=== PATIENT | female | born 1960 | race African-American/Black ===

== ENCOUNTER 2018-04-03 11:20 | Observation (INO) | payer SELFPAY ==
[2018-04-03] VITALS (9 sets, daily range): BP systolic 139–185; BP diastolic 69–122; PULSE 61–96; RESP 16–24; TEMP 98.3–98.7; O2SAT 92–98
[~2018-04-03] VITALS: Ht 157.5 cm; Wt 100.0 kg
[~2018-04-03 11:20] MED LIST: AMLO5TAB22 PO; PRED5PAK PO; SYMB160A INH; VENTAER INH; Z.0.OXYGENDME NC
[2018-04-03] MEDS ORDERED: ASPIRIN 325 MG TAB PO ONE (11:45)
[2018-04-03] MEDS ORDERED: SODIUM CHLORIDE 0.9% FLUSH 10 ML FLUSH IVF PRN (11:45)
[2018-04-03] MEDS ORDERED: SYMB160A INH (11:53)
[2018-04-03] MEDS ORDERED: oxygen NAS.CANULA (11:53)
[2018-04-03] MEDS ORDERED: METOCLOPRAMIDE HCL 10 MG/2 ML VIAL IV PUSH ONE (12:00)
[2018-04-03] MEDS ORDERED: MORPHINE SULFATE 4 MG/ML INJ IV PUSH ONE (12:00)
[2018-04-03 12:23] LABS: AUTOMATED NEUTROPHIL # 2.9 TH/MM3 (1.8-7.7); BASOPHIL % 0.8 % (0.0-2.0); EOSINOPHIL # 0.2 TH/MM3 (0-0.4); EOSINOPHIL % 2.7 % (0.0-4.0); HEMATOCRIT 52.4 % (35.0-46.0); HEMOGLOBIN 17.4 GM/DL (11.6-15.3); MEAN CELL VOLUME 95.5 FL (80.0-100.0); MEAN CORPUSCULAR HEMOGLOBIN 31.8 PG (27.0-34.0); MEAN CORPUSCULAR HGB CONC 33.3 % (32.0-36.0); MEAN PLATELET VOLUME 9.5 FL (7.0-11.0); MONO % 8.8 % (0.0-8.0); MONOCYTE # 0.5 TH/MM3 (0-0.9); NEUT % 52.7 % (16.0-70.0); PLATELET COUNT 181 TH/MM3 (150-450); RED BLOOD COUNT 5.48 MIL/MM3 (4.00-5.30); RED CELL DISTRIBUTION WIDTH 14.8 % (11.6-17.2); WHITE BLOOD COUNT 5.6 TH/MM3 (4.0-11.0)
[2018-04-03] MEDS: RESP: ALBUTEROL 2.5 MG/IPRATROPIUM 0.5 MG NEB (SCH) INH ×2 (12:31→12:34)
[2018-04-03 12:36] LABS: INTERNATIONAL NORMALIZED RATIO 1.1 RATIO; PROTHROMBIN TIME - PATIENT 10.7 SEC (9.8-11.6)
--- NOTE | 2018-04-03 12:45 | RADRPT ---
EXAM DATE: 04/03/2018 12:26 PM EDT AGE/SEX: 57 years / Female INDICATIONS: Left side chest pain. CLINICAL DATA: This is the patient's initial encounter. Patient reports that signs and symptoms have been present for 4 - 6 days and indicates a pain score of 10/10. MEDICAL/SURGICAL HISTORY: Carcinoma, lung. None. COMPARISON: [facility] – [place], CHEST SINGLE AP, 11/22/2015. . FINDINGS: Subtle rounded parenchymal opacity in the left lower lung zone which is likely due to confluence of s hadows. Cardiomediastinal contours are within normal limits. Bony thorax is intact. CONCLUSION: 1. Rounded parenchymal opacity in the left lower lung zone, likely due to confluence of shadows. Rec ommend formal PA and lateral views of the chest for better evaluation. Electronically signed by: Artis Montgomery MD 04/03/2018 12:44 PM EDT
[2018-04-03 12:51] LABS: ALBUMIN 3.6 GM/DL (3.4-5.0); ALKALINE PHOSPHATASE 75 U/L (45-117); ALT (GPT) 74 U/L (10-53); BICARBONATE 30.7 MEQ/L (21.0-32.0); BLOOD UREA NITROGEN 16 MG/DL (7-18); CALCIUM 8.6 MG/DL (8.5-10.1); CHLORIDE 104 MEQ/L (98-107); CREATININE 1.04 MG/DL (0.50-1.00); GLOMERULAR FILTRATION RATE 67 ML/MIN (>89); GLUCOSE,RANDOM 107 MG/DL (74-106); SODIUM (NA) 140 MEQ/L (136-145); TOTAL BILIRUBIN ADULT 0.4 MG/DL (0.2-1.0); TOTAL PROTEIN 7.5 GM/DL (6.4-8.2); TROPONIN I LESS THAN 0.02 NG/ML (0.02-0.05)
[2018-04-03 12:53] LABS: AST (GOT) 47 U/L (15-37); MAGNESIUM 1.9 MG/DL (1.5-2.5)
--- NOTE | 2018-04-03 13:25 | RADRPT ---
EXAM DATE: 04/03/2018 1:21 PM EDT AGE/SEX: 57 years / Female INDICATIONS: Chest pain. CLINICAL DATA: This is the patient's initial encounter. Patient reports that signs and symptoms have been present for 1 week and indicates a pain score of 10/10. MEDICAL/SURGICAL HISTORY: Chronic obstructive pulmonary disease. None. [place] [facility] [place] . FINDINGS: PA and lateral views of the chest demonstrate the lungs to be symmetrically aerated without evidence of mass, infiltrate or effusion. The cardiomediastinal contours are unremarkable. Osseous structures are intact. CONCLUSION: No acute cardiopulmonary findings are identified. Exam is similar to previous dated 01/05/2016. Electronically signed by: Shai Davalos MD 04/03/2018 1:24 PM EDT
--- NOTE | 2018-04-03 13:38 | PD ---
Physical Exam Narrative I, Dr. Miramontes, have reviewed the advance practice practitioner's documentation and am in agreement, met with the patient face to face, made the diagnosis, and the medical decision making was done by me. *My assessment and Findings: Please see mid-level provider note for full history and physical and disposition. Patient presents to the emergency department complaining of one-week history of left-sided chest pain that got worse today. Pain is described as being constant with left arm numbness. She reports cough but denies fever, chills, nausea, vomiting. Recently traveled to and from [place], [place]. Patient placed on a cardiac cath rn, IV access obtained, and chest x-ray/EKG/labs ordered. EKG: Sinus rhythm, T-wave inversion in lead I , II, aVL, V5 and V6, rate 80. Patient received 325 mg p.o. aspirin in ER. Will be admitted to chest pain obs. Data Data Last Documented VS Vital Signs Date Time Temp Pulse Resp B/P (MAP) Pulse Ox O2 Delivery O2 Flow Rate FiO2 04/03/18 12:52 18 04/03/18 12:20 80 168/90 (116) 98 Nasal Cannula 2.00 04/03/18 11:30 98.3 Orders Orders Electrocardiogram (04/03/18 11:37) Ckmb (Isoenzyme) Profile (04/03/18 11:37) Complete Blood Count With Diff (04/03/18 11:37) Comprehensive Metabolic Panel (04/03/18 11:37) Magnesium (Mg) (04/03/18 11:37) Prothrombin Time / Inr (Pt) (04/03/18 11:37) Act Partial Throm Time (Ptt) (04/03/18 11:37) Troponin I (04/03/18 11:37) Lipase (04/03/18 11:37) Chest, Single Ap (04/03/18 11:37) Ecg Monitoring (04/03/18 11:37) Bilateral Bp Monitoring (04/03/18 11:37) Iv Access Insert/Monitor (04/03/18 11:37) Oximetry (04/03/18 11:37) Oxygen Administration (04/03/18 11:37) Aspirin (Aspirin) (04/03/18 11:45) Sodium Chloride 0.9% Flush (Ns Flush) (04/03/18 11:45) D-Dimer (04/03/18 11:47) Albuterol-Ipratropium Neb (Duoneb Neb) (04/03/18 12:00) Morphine Inj (Morphine Inj) (04/03/18 12:00) Metoclopramide Inj (Reglan Inj) (04/03/18 12:00) Chest, Pa & Lat (04/03/18 ) CKMB (04/03/18 12:00) CKMB% (04/03/18 12:00) Admit Order (Ed Use Only) (04/03/18 13:35) Labs Laboratory Tests Test 04/03/18 12:00 White Blood Count 5.6 TH/MM3 Red Blood Count 5.48 MIL/MM3 Hemoglobin 17.4 GM/DL Hematocrit 52.4 % Mean Corpuscular Volume 95.5 FL Mean Corpuscular Hemoglobin 31.8 PG Mean Corpuscular Hemoglobin Concent 33.3 % Red Cell Distribution Width 14.8 % Platelet Count 181 TH/MM3 Mean Platelet Volume 9.5 FL Neutrophils (%) (Auto) 52.7 % Lymphocytes (%) (Auto) 35.0 % Monocytes (%) (Auto) 8.8 % Eosinophils (%) (Auto) 2.7 % Basophils (%) (Auto) 0.8 % Neutrophils # (Auto) 2.9 TH/MM3 Lymphocytes # (Auto) 2.0 TH/MM3 Monocytes # (Auto) 0.5 TH/MM3 Eosinophils # (Auto) 0.2 TH/MM3 Basophils # (Auto) 0.0 TH/MM3 CBC Comment DIFF FINAL Differential Comment Prothrombin Time 10.7 SEC Prothromb Time International Ratio 1.1 RATIO Activated Partial Thromboplast Time 26.0 SEC D-Dimer Quantitative (PE/DVT) 0.21 MG/L FEU Blood Urea Nitrogen 16 MG/DL Creatinine 1.04 MG/DL Random Glucose 107 MG/DL Total Protein 7.5 GM/DL Albumin 3.6 GM/DL Calcium Level 8.6 MG/DL Magnesium Level 1.9 MG/DL Alkaline Phosphatase 75 U/L Aspartate Amino Transf (AST/SGOT) 47 U/L Alanine Aminotransferase (ALT/SGPT) 74 U/L Total Bilirubin 0.4 MG/DL Sodium Level 140 MEQ/L Potassium Level 4.8 MEQ/L Chloride Level 104 MEQ/L Carbon Dioxide Level 30.7 MEQ/L Anion Gap 5 MEQ/L Estimat Glomerular Filtration Rate 67 ML/MIN Total Creatine Kinase 158 U/L Creatine Kinase MB 2.6 NG/ML Troponin I LESS THAN 0.02 NG/ML Lipase 111 U/L [facility] Supervised Visit with MINE: Yes Interpretation(s) Labs: Normal white count, d-dimer normal, cardiac enzymes normal, creatinine/ glucose/AST/ALT increased Last Impressions Chest X-Ray 04/03/18 1137 Signed Impressions: CONCLUSION: 1. Rounded parenchymal opacity in the left lower lung zone, likely due to conf luence of shadows. Recommend formal PA and lateral views of the chest for kristine r evaluation. Chest X-Ray 04/03/18 0000 Signed Impressions: CONCLUSION: No acute cardiopulmonary findings are identified. Exam is similar to previous dated 01/05/2016. Diagnosis Primary Impression: Chest pain Qualified Codes: R07.9 - Chest pain, unspecified Admitting Information Admitting Physician Requests: Observation Condition: Stable Lisa Miramontes MD Apr 03, 2018 13:38
--- NOTE | 2018-04-03 13:42 | PD ---
HPI Chief Complaint: Chest Pain Time Seen by Provider: 11:37 Travel History International Travel<30 days: No Contact w/Intl Traveler<30days: No Traveled to known affect area: No History of Present Illness HPI 57-year-old female that presents to the ED for evaluation of chest pain that she has had for the past 3 days. Per patient the pain goes to her left arm. This is what concerned her. Per patient comes and goes with more significant today. Per patient the pain is 7 out of 10. She denies any recent stress test. She does have a history of COPD on oxygen as well as per patient she has a history of high blood pressure and diabetes. She recently came here from [place]. She denies any trauma or injury. She states that nothing seems to make the pain better or worse. She has not taken anything for this. She denies any abdominal pain. Nausea or vomiting. No urinary or bowel movement issues PFSH Past Medical History Asthma: Yes Blood Disorders: No Anxiety: No Heart Rhythm Problems: No Cancer: Yes (breast;LUNG) Cardiovascular Problems: Yes High Cholesterol: No Chemotherapy: No Chest Pain: Yes (DURING CAT SCAN/REACTION TO DYE 11/19/15) Congestive Heart Failure: Yes COPD: Yes (3 L PER NC) Cerebrovascular Accident: Yes Coronary Artery Disease: No Diabetes: Yes Patient Takes Glucophage: No Endocrine: No Genitourinary: Yes Hypertension: Yes Immune Disorder: No Implanted Vascular Access Dvce: Yes Musculoskeletal: Yes (L ANKLE FX NOT REPAIRED ) Neurologic: Yes Psychiatric: No Reproductive: No Respiratory: Yes Radiation Therapy: No Seizures: No Sleep Apnea: No Thyroid Disease: No ?: Not Menopausal: Yes Past Surgical History Abdominal Surgery: Yes (CYST REMOVAL ) Body Medical Devices: LEFT BREAST MARKER FOR FUTURE BIOPSY Gynecologic Surgery: Yes (LEFT BREAST BIOPSY) Other Surgery: Yes (STOMACH TUMOR REMOVED DURING TEENS) Social History Alcohol Use: Yes (2 BEERS week) Tobacco Use: Yes (half a pack a day ) Substance Use: No Allergies-Medications (Allergen,Severity, Reaction): Coded Allergies: diatrizoate meglumine (Unverified Allergy, Intermediate, Wheezing, 04/03/18 ) gadobenic acid (Unverified Allergy, Intermediate, Wheezing, 04/03/18) gadodiamide (Unverified Allergy, Intermediate, Wheezing, 04/03/18) gadoteridol (Unverified Allergy, Intermediate, Wheezing, 04/03/18) iodixanol (Unverified Allergy, Intermediate, Wheezing, 04/03/18) iohexol (Unverified Allergy, Intermediate, Wheezing, 04/03/18) Reported Meds & Prescriptions Reported Meds & Active Scripts Active Reported [oxygen ] 3 Liter VALENTINE.CANULA CONTINUOUS Symbicort Inh (Budesonide/Formoterol Fumarate) 160-4.5 Mcg/Act Aero 2 Puff INH Q12HR Review of Systems Except as stated in HPI: all other systems reviewed are Neg Physical Exam Narrative GENERAL: SKIN: Warm and dry. HEAD: Atraumatic. Normocephalic. EYES: Pupils equal and round. No scleral icterus. No injection or drainage. ENT: No nasal bleeding or discharge. Mucous membranes pink and moist. Tongue is midline. No uvula deviation. NECK: Trachea midline. No JVD. CARDIOVASCULAR: Regular rate and rhythm. No murmurs, S3, S4. RESPIRATORY: No accessory muscle use. Mild wheezing heard in all lung hogue. Breath sounds equal bilaterally. GASTROINTESTINAL: Abdomen soft, non-tender, nondistended. Hepatic and splenic margins not palpable. MUSCULOSKELETAL: Extremities without clubbing, cyanosis, or edema. No obvious deformities. Full range of motion of the upper and lower extremities bilaterally. 2+ pulses bilaterally. NEUROLOGICAL: Awake and alert. No obvious cranial nerve deficits. Motor grossly within normal limits. Five out of 5 muscle strength in the arms and legs. Normal speech. PSYCHIATRIC: Appropriate mood and affect; insight and judgment normal. Data Data Last Documented VS Vital Signs Date Time Temp Pulse Resp B/P (MAP) Pulse Ox O2 Delivery O2 Flow Rate FiO2 04/03/18 12:52 18 04/03/18 12:20 80 168/90 (116) 98 Nasal Cannula 2.00 04/03/18 11:30 98.3 Orders Orders Electrocardiogram (04/03/18 11:37) Ckmb (Isoenzyme) Profile (04/03/18 11:37) Complete Blood Count With Diff (04/03/18 11:37) Comprehensive Metabolic Panel (04/03/18 11:37) Magnesium (Mg) (04/03/18 11:37) Prothrombin Time / Inr (Pt) (04/03/18 11:37) Act Partial Throm Time (Ptt) (04/03/18 11:37) Troponin I (04/03/18 11:37) Lipase (04/03/18 11:37) Chest, Single Ap (04/03/18 11:37) Ecg Monitoring (04/03/18 11:37) Bilateral Bp Monitoring (04/03/18 11:37) Iv Access Insert/Monitor (04/03/18 11:37) Oximetry (04/03/18 11:37) Oxygen Administration (04/03/18 11:37) Aspirin (Aspirin) (04/03/18 11:45) Sodium Chloride 0.9% Flush (Ns Flush) (04/03/18 11:45) D-Dimer (04/03/18 11:47) Albuterol-Ipratropium Neb (Duoneb Neb) (04/03/18 12:00) Morphine Inj (Morphine Inj) (04/03/18 12:00) Metoclopramide Inj (Reglan Inj) (04/03/18 12:00) Chest, Pa & Lat (04/03/18 ) CKMB (04/03/18 12:00) CKMB% (04/03/18 12:00) Admit Order (Ed Use Only) (04/03/18 13:35) Labs Laboratory Tests Test 04/03/18 12:00 White Blood Count 5.6 TH/MM3 Red Blood Count 5.48 MIL/MM3 Hemoglobin 17.4 GM/DL Hematocrit 52.4 % Mean Corpuscular Volume 95.5 FL Mean Corpuscular Hemoglobin 31.8 PG Mean Corpuscular Hemoglobin Concent 33.3 % Red Cell Distribution Width 14.8 % Platelet Count 181 TH/MM3 Mean Platelet Volume 9.5 FL Neutrophils (%) (Auto) 52.7 % Lymphocytes (%) (Auto) 35.0 % Monocytes (%) (Auto) 8.8 % Eosinophils (%) (Auto) 2.7 % Basophils (%) (Auto) 0.8 % Neutrophils # (Auto) 2.9 TH/MM3 Lymphocytes # (Auto) 2.0 TH/MM3 Monocytes # (Auto) 0.5 TH/MM3 Eosinophils # (Auto) 0.2 TH/MM3 Basophils # (Auto) 0.0 TH/MM3 CBC Comment DIFF FINAL Differential Comment Prothrombin Time 10.7 SEC Prothromb Time International Ratio 1.1 RATIO Activated Partial Thromboplast Time 26.0 SEC D-Dimer Quantitative (PE/DVT) 0.21 MG/L FEU Blood Urea Nitrogen 16 MG/DL Creatinine 1.04 MG/DL Random Glucose 107 MG/DL Total Protein 7.5 GM/DL Albumin 3.6 GM/DL Calcium Level 8.6 MG/DL Magnesium Level 1.9 MG/DL Alkaline Phosphatase 75 U/L Aspartate Amino Transf (AST/SGOT) 47 U/L Alanine Aminotransferase (ALT/SGPT) 74 U/L Total Bilirubin 0.4 MG/DL Sodium Level 140 MEQ/L Potassium Level 4.8 MEQ/L Chloride Level 104 MEQ/L Carbon Dioxide Level 30.7 MEQ/L Anion Gap 5 MEQ/L Estimat Glomerular Filtration Rate 67 ML/MIN Total Creatine Kinase 158 U/L Creatine Kinase MB 2.6 NG/ML Troponin I LESS THAN 0.02 NG/ML Lipase 111 U/L MDM Medical Decision Making Medical Screen Exam Complete: Yes Emergency Medical Condition: Yes Medical Record Reviewed: Yes Interpretation(s) CBC & BMP Diagram 04/03/18 12:00 Total Protein 7.5, Albumin 3.6, Calcium Level 8.6, Magnesium Level 1.9, Alkaline Phosphatase 75, Aspartate Amino Transf (AST/SGOT) 47 H, Alanine Aminotransferase (ALT/SGPT) 74 H, Total Bilirubin 0.4 troponin and CKMB negative Last Impressions Chest X-Ray 04/03/18 1137 Signed Impressions: CONCLUSION: 1. Rounded parenchymal opacity in the left lower lung zone, likely due to conf luence of shadows. Recommend formal PA and lateral views of the chest for kristine r evaluation. Chest X-Ray 04/03/18 0000 Signed Impressions: CONCLUSION: No acute cardiopulmonary findings are identified. Exam is similar to previous dated 01/05/2016. EKG shows sinus rhythm with no sign of acute ischemia or arrhythmia rhythm and attending. lipase negative d-dimmer negative Differential Diagnosis Chest pain versus a typical chest pain versus ACS versus lung mass versus COPD exacerbation versus COPD Narrative Course 57-year-old male the presents to the ED for evaluation of chest pain. Patient was properly examined and was found to have signs and symptoms of unclear etiology but deafly concern for ACS. She does have risk factors for this. She does appear to have some wheezing on exam. Per patient she is never had this pain before. She cannot really tell me she never had a stress test recently. She does have risk factors per patient she has a history of diabetes and high blood pressure. Labs and imaging were ordered. Labs and imaging were essentially unremarkable here. Chest x-ray showed abnormality but the recommended multiple views of the x-ray which showed no sign of disease. My attending Dr Miramontes evaluated the patient herself and patient agreed to admission to the chest pain center for chest pain rule out. Patient was admitted to the chest pain center by me. Diagnosis Primary Impression: Chest pain in adult Admitting Information Admitting Physician Requests: Observation Natalio Jones Apr 03, 2018 13:42
[2018-04-03] MEDS ORDERED: SODIUM CHLORIDE 0.9% FLUSH 10 ML FLUSH IV FLUSH PRN (14:00)
[2018-04-03] MEDS ORDERED: NITROGLYCERIN 0.4 MG SL 25 TABS/BTL SL PRN (14:00)
[2018-04-03] MEDS: ACETAMINOPHEN 500 MG CPLT PO PRN (15:42)
--- NOTE | 2018-04-03 16:09 | HHI.HP ---
HPI Primary Care Physician No Primary Care Physician Chief Complaint Chest pain History of Present Illness 57-year-old female history of COPD, O2 dependent, and breast cancer presents emergency room for further evaluation chest pain. Onset 2 weeks. Location left breast and left inframammary area. Radiation to left arm causing her left arm to go numb. Moderate in severity. Duration constant. Endorses history of breast cancer with possible malignancy to lungs. Reports having a biopsy of lung and was told everything was "okay." Reports she hasn't followed up with an oncologist as she was incarcerated. While incarcerated reports having a left breast ultrasound. Reports the multiple masses in left breast had grown in size. Review of Systems General: No fatigue,weakness, fever, chills, or recent illness HEENT: No LANGLEY, no vision changes, no nasal congestion or drainage, no dysphasia CV: As stated above, describing left breast and chest wall pain. RESP: History of COPD and O2 dependent. No current dyspnea. No recent upper respiratory infection or wheeze. GI: No nausea, vomiting, or bowel changes. : No dysuria, urgency, frequency MS: No discomfort or change in ROM NEURO: No change in memory, dizziness, difficulty with balance, LOC, or motor/ sensory deficits PSYCH: No anxiety, depression, or suicidal ideation SKIN: No rashes, no concerning lesions Past Family Social History Allergies: Coded Allergies: diatrizoate meglumine (Unverified Allergy, Intermediate, Wheezing, 04/03/18 ) gadobenic acid (Unverified Allergy, Intermediate, Wheezing, 04/03/18) gadodiamide (Unverified Allergy, Intermediate, Wheezing, 04/03/18) gadoteridol (Unverified Allergy, Intermediate, Wheezing, 04/03/18) iodixanol (Unverified Allergy, Intermediate, Wheezing, 04/03/18) iohexol (Unverified Allergy, Intermediate, Wheezing, 04/03/18) Past Medical History Asthma, COPD, hypertension, diabetes, breast cancer Past Surgical History Left breast biopsy Reported Medications Reported Meds & Active Scripts Active Reported [oxygen ] 3 Liter VALENTINE.CANULA CONTINUOUS Symbicort Inh (Budesonide/Formoterol Fumarate) 160-4.5 Mcg/Act Aero 2 Puff INH Q12HR Active Ordered Medications Current Medications Medications (Trade) Dose Ordered Sig/Andra Route Start Time Stop Time Status Last Admin (NS Flush) 2 ml UNSCH PRN IVF 04/03/18 11:45 (NS Flush) 2 ml UNSCH PRN IV FLUSH 04/03/18 14:00 (Tylenol) 500 mg Q4H PRN PO 04/03/18 14:00 04/03/18 15:42 (Nitrostat Sl) 0.4 mg Q5M PRN SL 04/03/18 14:00 (Aspirin) 325 mg DAILY PO 04/04/18 09:00 Social History No known coronary artery disease or hyperlipidemia. Known hypertension and diabetes. Current half a pack a day smoker. Denies any alcohol or illegal drug use. Past cardiac testing None Physical Exam Vital Signs Vital Signs Date Time Temp Pulse Resp B/P (MAP) Pulse Ox O2 Delivery O2 Flow Rate FiO2 04/03/18 15:42 Nasal Cannula 3.00 04/03/18 13:50 78 149/69 (95) 04/03/18 12:52 18 04/03/18 12:20 80 18 168/90 (116) 98 Nasal Cannula 2.00 04/03/18 11:49 (143) Nasal Cannula 3.00 04/03/18 11:48 72 185/122 (143) 172/101 (124) 04/03/18 11:46 78 28 96 Nasal Cannula 3.00 04/03/18 11:45 95 Nasal Cannula 3.00 04/03/18 11:30 98.3 88 24 178/105 (129) 94 Laboratory Laboratory Tests Test 04/03/18 12:00 04/03/18 15:30 White Blood Count 5.6 Red Blood Count 5.48 Hemoglobin 17.4 Hematocrit 52.4 Mean Corpuscular Volume 95.5 Mean Corpuscular Hemoglobin 31.8 Mean Corpuscular Hemoglobin Concent 33.3 Red Cell Distribution Width 14.8 Platelet Count 181 Mean Platelet Volume 9.5 Neutrophils (%) (Auto) 52.7 Lymphocytes (%) (Auto) 35.0 Monocytes (%) (Auto) 8.8 Eosinophils (%) (Auto) 2.7 Basophils (%) (Auto) 0.8 Neutrophils # (Auto) 2.9 Lymphocytes # (Auto) 2.0 Monocytes # (Auto) 0.5 Eosinophils # (Auto) 0.2 Basophils # (Auto) 0.0 CBC Comment DIFF FINAL Differential Comment Prothrombin Time 10.7 Prothromb Time International Ratio 1.1 Activated Partial Thromboplast Time 26.0 D-Dimer Quantitative (PE/DVT) 0.21 Blood Urea Nitrogen 16 Creatinine 1.04 Random Glucose 107 Total Protein 7.5 Albumin 3.6 Calcium Level 8.6 Magnesium Level 1.9 Alkaline Phosphatase 75 Aspartate Amino Transf (AST/SGOT) 47 Alanine Aminotransferase (ALT/SGPT) 74 Total Bilirubin 0.4 Sodium Level 140 Potassium Level 4.8 Chloride Level 104 Carbon Dioxide Level 30.7 Anion Gap 5 Estimat Glomerular Filtration Rate 67 Total Creatine Kinase 158 Creatine Kinase MB 2.6 Troponin I LESS THAN 0.02 Lipase 111 Result Diagram: 04/03/18 1200 04/03/18 1200 Imaging Last 48 hours Impressions Chest X-Ray 04/03/18 1137 Signed Impressions: CONCLUSION: 1. Rounded parenchymal opacity in the left lower lung zone, likely due to conf luence of shadows. Recommend formal PA and lateral views of the chest for kristine r evaluation. Chest X-Ray 04/03/18 0000 Signed Impressions: CONCLUSION: No acute cardiopulmonary findings are identified. Exam is similar to previous dated 01/05/2016. Course EKG NSR, nonspecific st changes, t waves inversion Caprini VTE Risk Assessment Caprini VTE Risk Assessment: No/Low Risk (score <= 1) Caprini Risk Assessment Model Point Value = 1 Point Value = 2 Point Value = 3 Point Value = 5 Age 41-60 Minor surgery BMI > 25 kg/m2 Swollen legs Varicose veins or History of unexplained or recurrent spontaneous Oral contraceptives or hormone replacement Sepsis (< 1 month) Serious lung disease, including pneumonia (< 1 month) Abnormal pulmonary function Acute myocardial infarction Congestive heart failure (< 1 month) History of inflammatory bowel disease Medical patient at bed rest Age 61-74 Arthroscopic surgery Major open surgery (> 45 min) Laparoscopic surgery (> 45 min) Malignancy Confined to bed (> 72 hours) Immobilizing plaster cast Central venous access Age >= 75 History of VTE Family history of VTE Factor V Leiden Prothrombin [id number] Lupus anticoagulant Anticardiolipin antibodies Elevated serum homocysteine Heparin-induced thrombocytopenia Other congenital or acquired thrombophilia Stroke (< 1 month) Elective arthroplasty Hip, pelvis, or leg fracture Acute spinal cord injury (< 1 month) Prophylaxis Regimen Total Risk Factor Score Risk Level Prophylaxis Regimen 0-1 Low Early ambulation 2 Moderate Order ONE of the following: *Sequential Compression Device (SCD) *Heparin 5000 units SQ BID 3-4 Higher Order ONE of the following medications: *Heparin 5000 units SQ TID *Enoxaparin/Lovenox 40 mg SQ daily (WT < 150 kg, CrCl > 30 mL/min) *Enoxaparin/Lovenox 30 mg SQ daily (WT < 150 kg, CrCl > 10-29 mL/min) *Enoxaparin/Lovenox 30 mg SQ BID (WT < 150 kg, CrCl > 30 mL/min) AND/OR *Sequential Compression Device (SCD) 5 or more Highest Order ONE of the following medications: *Heparin 5000 units SQ TID (Preferred with Epidurals) *Enoxaparin/Lovenox 40 mg SQ daily (WT < 150 kg, CrCl > 30 mL/min) *Enoxaparin/Lovenox 30 mg SQ daily (WT < 150 kg, CrCl > 10-29 mL/min) *Enoxaparin/Lovenox 30 mg SQ BID (WT < 150 kg, CrCl > 30 mL/min) AND *Sequential Compression Device (SCD) Assessment and Plan Assessment and Plan Admitted to chest pain center. Continue ACS protocol initiated in the ER, although discomfort has been constant 2 weeks and localized in her left breast and chest wall. Seen and evaluated by Dr. Shawn Burton. Unsure if she has history of breast cancer vs breast mass and or lung mass. Obtain CT of her chest. Further disposition to follow. Continue O2/3 L. Respiratory treatments every 2 hours as needed. Will reorder home medications once updated in EMR. Neela Zhong Apr 03, 2018 16:09
[2018-04-03 16:23] LABS: TROPONIN I LESS THAN 0.02 NG/ML (0.02-0.05)
[2018-04-03] MEDS: amLODIPine BESYLATE 5 MG TAB PO SCH (18:03)
--- NOTE | 2018-04-03 18:44 | RADRPT ---
EXAM DATE: 04/03/2018 5:29 PM EDT AGE/SEX: 57 years / Female INDICATIONS: Chest pain today. CLINICAL DATA: This is the patient's initial encounter. Patient reports that signs and symptoms have been present for 1 day and indicates a pain score of 6/10. MEDICAL/SURGICAL HISTORY: Stroke. Carcinoma, breast. Carcinoma, lung. None. RADIATION DOSE: 13.36 CTDI (mGy) COMPARISON: [facility] – [place], 11/19/2015. . TECHNIQUE: Multiple contiguous axial images were obtained through the chest without contrast. Image s were obtained in suspended respiration using multiple row detector helical technique. Using automa daniel exposure control and adjustment of the mA and/or kV according to patient size, radiation dose was kept as low as reasonably achievable to obtain optimal diagnostic quality images. DICOM format imag e data is available electronically for review and comparison. FINDINGS: There is mild to moderate emphysema. Scattered parenchymal scarring in the lungs. There is no pleural or pericardial effusion. Moderate coronary calcifications. Previously identified spiculated nodule i n the right upper lobe is not identified on the current exam. No adenopathy. No acute findings in the upper abdomen. CONCLUSION: 1. Moderate to severe emphysema with scattered parenchymal scarring in the lungs. No effusions or ad enopathy. Electronically signed by: Parth Barahona MD 04/03/2018 6:43 PM EDT
[2018-04-03 19:25] LABS: TROPONIN I LESS THAN 0.02 NG/ML (0.02-0.05)
[2018-04-04] VITALS: PULSE 78
[2018-04-04 00:09] VITALS: BP 132/86; PULSE 83; RESP 17; TEMP 97.9; O2SAT 97
[2018-04-04 04:26] VITALS: BP 163/105; PULSE 80; RESP 16; TEMP 97.6; O2SAT 91
[2018-04-04 07:58] VITALS: BP 125/89; PULSE 70; RESP 16; TEMP 98.2; O2SAT 93
[2018-04-04] MEDS ORDERED: RESP: ALBUTEROL 2.5 MG/3 ML NEB (PRN) NEB (08:45)
[2018-04-04] MEDS ORDERED: ASPIRIN 325 MG TAB PO SCH (09:00)
--- NOTE | 2018-04-04 09:14 | EKG ---
Date Performed: 04/03/2018 Time Performed: 18:23:22 PTAGE: 57 years EKG: Sinus rhythm POSSIBLE LEFT ATRIAL ENLARGEMENT NONSPECIFIC T-WAVE ABNORMALITY BORDERLINE ECG Since PREVIOUS TRACING , no significant change noted PREVIOUS TRACIN04/03/2018 15.13 DOCTOR: Blanche Giles Interpretating Date/Time 04/04/2018 09:12:36
--- NOTE | 2018-04-04 09:15 | EKG ---
Date Performed: 04/03/2018 Time Performed: 15:13:28 PTAGE: 57 years EKG: ECTOPIC ATRIAL RHYTHM LOW QRS VOLTAGE IN EXTREMITY LEADS SEPTAL MYOCARDIAL INFARCTION POSSI BLE LATERAL MYOCARDIAL INFARCTION ABNORMAL ECG Since PREVIOUS TRACING , no significant change noted PREVIOUS TRACIN04/03/2018 11.41 DOCTOR: Blanche Giles Interpretating Date/Time 04/04/2018 09:13:55
--- NOTE | 2018-04-04 09:16 | EKG ---
Date Performed: 04/03/2018 Time Performed: 11:41:10 PTAGE: 57 years EKG: Sinus rhythm POSSIBLE LEFT ATRIAL ENLARGEMENT NONSPECIFIC ST & T-WAVE ABNORMALITY ABNORMAL ECG Since PREVIOUS TRACING , no significant change noted PREVIOUS TRACIN01/05/2016 10.42 DOCTOR: Blanche Giles Interpretating Date/Time 04/04/2018 09:15:17
[2018-04-04] MEDS ORDERED: REGADENOSON INJ 0.4 MG/5 ML SYR ONE (10:08)
--- NOTE | 2018-04-04 11:30 | RADRPT ---
EXAM DATE: 04/04/2018 11:21 AM EDT AGE/SEX: 57 years / Female INDICATIONS:Angina. . Chest pain x 2 weeks. CLINICAL DATA: This is the patient's initial encounter. Patient reports that signs and symptoms have been present for 1 day and indicates a pain score of 0/10. MEDICAL/SURGICAL HISTORY: Carcinoma, breast. Chronic obstructive pulmonary disease. Hypertens ion. Smoker. . Left breast biopsy. COMPARISON: No prior exams available for comparison. DOSE: 35 mCi Tc 99m Myoview at rest 11 mCi [id number] at stress 0.4 mg Lexiscan STRESS SYMPTOMS: Nausea and stomach burning. EJECTION FRACTION: 53 % TECHNIQUE: The patient underwent pharmacologic stress with infusion of prescribed dose. Continuous ECG tracing was monitored during stress. Gated SPECT imaging was performed after stress and conventi onal SPECT imaging was performed at rest. The examination was performed on a SPECT/CT scanner, both attenuation and non-corrected datasets were reviewed. FINDINGS: Distribution: The maximum perfused segment at stress is in the lateral wall. Perfusion Study: The pattern of perfusion at stress is within normal limits. Gated Study: There are intact wall motion and wall thickening without hypokinetic or dyskinetic segm ents. The ejection fraction is calculated at 53%. RISK CATEGORY: Low (<1% Annual Motality Rate) CONCLUSION: 1. Unremarkable myocardial perfusion study. Electronically signed by: Denys Benton MD 04/04/2018 11:28 AM EDT
--- NOTE | 2018-04-04 11:49 | RADRPT ---
EXAM DATE: 04/04/2018 11:25 AM EDT AGE/SEX: 57 years / Female INDICATIONS: Chest pain, short of breath. CLINICAL DATA: This is the patient's subsequent encounter. Patient reports that signs and symptoms h ave been present for 3 days and indicates a pain score of 7/10. MEDICAL/SURGICAL HISTORY: Hypertension. Congestive heart failure. Chronic obstructive pulmona ry disease. Asthma None. [place] [facility] [place]. . FINDINGS: PA and lateral views of the chest demonstrate the lungs to be symmetrically aerated without evidence of mass, infiltrate or effusion. The cardiomediastinal contours are unremarkable. Osseous structures are intact. CONCLUSION: No acute pulmonary infiltrates. No new or significant changes compared to the prior study. Electronically signed by: Denys Benton MD 04/04/2018 11:48 AM EDT
--- NOTE | 2018-04-04 11:51 | HHI.DCPOC ---
Discharge Care Plan Diagnosis: (1) Chest pain in adult (2) Tobacco use Goals to Promote Your Health * To prevent worsening of your condition and complications * To maintain your health at the optimal level Directions to Meet Your Goals Take your medications as prescribed Follow your dietary instruction Follow activity as directed Keep your appointments as scheduled Take your immunizations and boosters as scheduled If your symptoms worsen call your PCP, if no PCP go to Urgent Care Center or Emergency Room Smoking is Dangerous to Your Health. Avoid second hand smoke Call the 24-hour hour crisis hotline for domestic abuse at Neela Zhong Apr 04, 2018 11:51
--- NOTE | 2018-04-04 11:58 | HHI.DS ---
Discharge Summary Admission Date Apr 03, 2018 at 13:36 Discharge Date: Apr 04, 2018 Admitting Diagnosis acute chest pain, r/o ACS (1) Chest pain in adult Diagnosis: Principal ICD Codes: R07.9 - Chest pain, unspecified Status: Chronic (2) Tobacco use Diagnosis: Secondary ICD Codes: Z72.0 - Tobacco use Status: Chronic Brief History 57-year-old female who is O2 dependent, history of COPD, continues to smoke presented emergency room for further evaluation chest pain. Onset at least 2 weeks. Duration constant. No chest pain center. Ruled out with 3 sets of EKGs cardiac enzymes, monitor on telemetry overnight. Seen evaluated by integrated program teacher. Treated with Lexiscan in a.m. She reported left breast cancer ( dx 2003) with possible malignancy to left upper lobe (2013). Following with an oncologist in 2015, reports she never received results of testing because she was incarcerated. Since released from penitentiary has not followed up with a primary care provider. She is a poor historian, denied ever having treatment such as chemotherapy or radiation. CT of her chest completed showing mild to moderate emphysema and right lower lobe mass not seen on current exam. Discharged home with copy of chemical stress test and CT scan of her chest. Stressed importance of reestablishing with her primary care provider, especially with reported history of possible breast cancer. Verbalized understanding. CBC/BMP: 04/03/18 1200 04/03/18 1200 Significant Findings Laboratory Tests Test 04/03/18 12:00 04/03/18 15:30 04/03/18 18:00 Red Blood Count 5.48 MIL/MM3 (4.00-5.30) Hemoglobin 17.4 GM/DL (11.6-15.3) Hematocrit 52.4 % (35.0-46.0) Monocytes (%) (Auto) 8.8 % (0.0-8.0) Creatinine 1.04 MG/DL (0.50-1.00) Random Glucose 107 MG/DL (74-106) Aspartate Amino Transf (AST/SGOT) 47 U/L (15-37) Alanine Aminotransferase (ALT/SGPT) 74 U/L (10-53) Estimat Glomerular Filtration Rate 67 ML/MIN (>89) Troponin I LESS THAN 0.02 NG/ML LESS THAN 0.02 NG/ML LESS THAN 0.02 NG/ML Pt Condition on Discharge: Good Discharge Disposition: Discharge Home Discharge Instructions DIET: Follow Instructions for: Heart Healthy Diet Activities you can perform: Regular-No Restrictions Neela Zhong Apr 04, 2018 11:58
[2018-04-04] MEDS: ACETAMINOPHEN 500 MG CPLT PO PRN (12:08)
[2018-04-04] MEDS: amLODIPine BESYLATE 5 MG TAB PO SCH (12:08)
[2018-04-04 12:18] VITALS: PULSE 71; O2SAT 93
--- NOTE | 2018-04-04 15:27 | TR ---
Date Performed: 04/04/2018 Time Performed: 10:12:02 DOCTOR: Blanche Giles DRUG LIST: CLINICAL HISTORY: CHEST PAIN REASON FOR TEST: CHEST PAIN REASON FOR ENDING: OBSERVATION: CONCLUSION: Lexiscan stress test was performed under standard four minute protocol. Radionuclid e was injected one minute prior to ending the test. No electrocardiographic abormalities were present to suggest ischemia. Nuclear imaging and interpretation are pending. COMMENTS:
== END 2018-04-04 12:36 | disposition home or self-care (01) ==
LOC: NEPE 11:20 → NEDA 13:36 → NEPFCDU 14:58
PROVIDERS: ADMIT Internal Medicine Cardiovascular Disease; ATTEND Internal Medicine Cardiovascular Disease
DX: R07.9 Chest pain, unspecified (principal); R20.0 Anesthesia of skin; J44.9 Chronic obstructive pulmonary disease, unspecified; Z99.81 Dependence on supplemental oxygen; E11.9 Type 2 diabetes mellitus without complications; R03.0 Elevated blood-pressure reading, without diagnosis of hypertension; I50.9 Heart failure, unspecified; I11.0 Hypertensive heart disease with heart failure; Z86.73 Personal history of transient ischemic attack (TIA), and cerebral infarction without residual deficits; F17.210 Nicotine dependence, cigarettes, uncomplicated; R94.31 Abnormal electrocardiogram [ECG] [EKG]; Z85.3 Personal history of malignant neoplasm of breast; Z85.118 Personal history of other malignant neoplasm of bronchus and lung
CPT/HCPCS: 71045; 71046; 71250; 78452; 80053; 82550; 82552; 83690; 83735; 84484; 85025; 85379; 85610; 85730; 93005; 93017; 94640; 94664; 96374; 96375; 99285; A9502; G0378; J2270; J2765; J2785

== ENCOUNTER 2018-06-13 15:12 | Observation (INO) ==
[2018-06-13] MEDS ORDERED: MethylPREDNISolone Sod Succinate Inj 125 MG/2 ML Vial IV.PUSH ONE (15:44)
[2018-06-13] MEDS ORDERED: Aspirin 325 MG Tablet PO ONE (15:45)
[2018-06-13] MEDS ORDERED: Acetaminophen 325 MG Tablet PO ONE (15:45)
[2018-06-13 16:04] LABS: Baso # (Auto) 0.1 th/mm3 (0.0-0.2); Baso % (Auto) 0.7 % (0.0-2.0); Eos # (Auto) 0.1 th/mm3 (0.0-0.4); Eos % (Auto) 0.6 % (0.0-4.0); Hematocrit 45.1 % (35.0-46.0); Hemoglobin 15.8 gm/dL (11.6-15.3); Lymph % (Auto) 8.7 % (9.0-44.0); Mean Corpuscular Hemoglobin 33.1 pg (27.0-34.0); Mean Corpuscular Volume 94.8 fL (80.0-100.0); Mean Platelet Volume 9.4 fL (7.0-11.0); Mono # (Auto) 0.9 th/mm3 (0.0-0.9); Neut # (Auto) 9.6 th/mm3 (1.8-7.7); Platelet Count 185 th/mm3 (150-450); Red Blood Count 4.76 mil/mm3 (4.00-5.30); Red Cell Distribution Width 15.6 % (11.6-17.2); White Blood Count 11.8 th/mm3 (4.0-11.0)
--- NOTE | 2018-06-13 16:12 | XR ---
EXAM DATE: 06/13/2018 4:06 PM EDT AGE/SEX: 57 years / Female INDICATIONS: Short of breath for at least 2 weeks CLINICAL DATA: This is the patient's initial encounter. Patient reports that signs and symptoms have been present for 2 weeks and indicates a pain score of 0/10. MEDICAL/SURGICAL HISTORY: Asthma. Chronic obstructive pulmonary disease. None. COMPAR[place]: [facility] [place], [place]. . FINDINGS: A single AP view of the chest demonstrates the lungs to be symmetrically aerated without evidence of mass, infiltrate or effusion. The cardiomediastinal contours are unremarkable. Osseous structures a re intact. CONCLUSION: No acute cardiopulmonary disease. Electronically signed by: Shawn Yeboah MD 06/13/2018 4:11 PM EDT
[2018-06-13 16:28] LABS: Anion Gap 7 meq/L (5-15); Blood Urea Nitrogen 11 mg/dL (7-18); Calcium 8.6 mg/dL (8.5-10.1); Carbon Dioxide 27.1 meq/L (21.0-32.0); Chloride 103 meq/L (98-107); Glomerular Filtration Rate 67 mL/min (>89); Glucose,Random 245 mg/dL (74-106); Potassium 3.9 meq/L (3.5-5.1); Sodium 137 meq/L (136-145)
[2018-06-13 16:34] LABS: Creatine Kinase 136 U/L (26-192)
[2018-06-13] MEDS ORDERED: Butalbital/APAP/Caff 50/325/40 MG Tablet PO ONE (16:49)
[2018-06-13 16:52] LABS: Creatine Kinase MB 1.5 ng/mL (0.5-3.6)
--- NOTE | 2018-06-13 17:25 | CT ---
EXAM DATE: 06/13/2018 5:23 PM EDT AGE/SEX: 57 years / Female INDICATIONS: Cephalgia. CLINICAL DATA: This is the patient's initial encounter. Patient reports that signs and symptoms have been present for 2 days and indicates a pain score of 10/10. MEDICAL/SURGICAL HISTORY: Asthma. Chronic obstructive pulmonary disease. Hypertension. None. RADIATION DOSE: 34.89 CTDI (mGy) COMPARISON: [facility] [place], 05/31/2018. . TECHNIQUE: CT of the head without contrast. Using automated exposure control and adjustment of the mA and/or kV according to patient size, radiation dose was kept as low as reasonably achievable to ob tain optimal diagnostic quality images. DICOM format image data is available electronically for revi ew and comparison. FINDINGS: Ventricles and cisterns are of normal size and configuration. No hemorrhage, infarct, or mass. No fra ctures. CONCLUSION: 1. Negative CT Head non contrast. . Electronically signed by: Bryan Toure MD 06/13/2018 5:24 PM EDT
--- NOTE | 2018-06-13 17:53 | ED ---
HPI General Chief Complaint: Chest Pain Stated Complaint: General Medical Time Seen by Provider: 06/13/18 15:43 Source: patient Mode of arrival: ambulatory Limitations: no limitations History of Present Illness HPI narrative: 57-year-old female that presents to the ED for evaluation of chest pain to raise to the left arm. Per patient she is been also having shortness of breath for the past 2 days. Per patient is oxygen at home. She is using her inhalers but does not seem to be helping. Per patient she continues to smoke and has a history of COPD. She does have a history of diabetes and high blood pressure. Denies any urinary or bowel movement issues. No abdominal pain. Patient also has a headache and a knot on her throat as well as sore throat. She has been coughing and having a lot of congestion. Per patient the chest pain stays and does not seem to improve with anything but does get worse with the cough. Radiates to the left arm. No injuries or trauma. Headache per patient is 8 out of 10 in the chest pain is 6 out of 10. Feels like a pressure in her chest. No other medical issues at this time. Per patient she has primary care doctor but unclear if she has been seen by him recently. Complete Quality Measures for STEMI Alert Patients Related Data Previous Rx's Medication Instructions Recorded mnyufhsoxv-lnutrgh-krfgmies 1 cap PO Q6H PRN #6 cap 05/31/18 [Fiorinal] lisinopril 5 mg PO DAILY #30 tab 05/31/18 Allergies Allergy/AdvReac Type Severity Reaction Status Date / Time diatrizoate meglumine Allergy Intermediate Wheezing Verified 05/31/18 14:13 gadobenic acid Allergy Intermediate Wheezing Verified 05/31/18 14:13 gadodiamide Allergy Intermediate Wheezing Verified 05/31/18 14:13 gadoteridol Allergy Intermediate Wheezing Verified 05/31/18 14:13 iodixanol Allergy Intermediate Wheezing Verified 05/31/18 14:13 iohexol Allergy Intermediate Wheezing Verified 05/31/18 14:13 Review of Systems ROS: all other systems reviewed are negative [facility] Medical History Medical History Asthma (Acute) Breast mass (Acute) HTN (hypertension) (Acute) COPD (chronic obstructive pulmonary disease) (Acute) Surgical History Surgical History No history of previous surgery (Acute) Social History Social History Substance History: No History of Abuse Smoking Status: Current every day smoker Tobacco Type: Cigarettes How Often Do You Have a Drink Containing Alcohol: Never [facility] within the Last 8 Weeks: No Recent Out of Country Travel within the Last 8 Weeks: No Immunization History Tetanus Immunization: Unsure Hx Influenza Vaccine This Season: Yes Exam Narrative Exam Narrative: GENERAL: Well-appearing SKIN: Focused skin assessment warm/dry. HEAD: Atraumatic. Normocephalic. EYES: Pupils equal and round. No scleral icterus. No injection or drainage. ENT: No nasal bleeding or discharge. Mucous membranes pink and moist. Tongue is midline. No uvula deviation. NECK: Trachea midline. No JVD. CARDIOVASCULAR: Regular rate and rhythm. No murmur appreciated. RESPIRATORY: No accessory muscle use. Wheezing heard in all lung hogue especially in the lower lung hogue. Breath sounds equal bilaterally. GASTROINTESTINAL: Abdomen soft, non-tender, nondistended. Hepatic and splenic margins not palpable. MUSCULOSKELETAL: No obvious deformities. No clubbing. No cyanosis. No edema. Full range of motion of the upper and lower extremities bilaterally. 2+ pulses bilaterally. NEUROLOGICAL: Awake and alert. No obvious cranial nerve deficits. Motor grossly within normal limits. Normal speech. PSYCHIATRIC: Appropriate mood and affect; insight and judgment normal. Course Initial Documented Vital Signs Temperature 98.3 F 06/13/18 15:30 Pulse Rate 118 H 06/13/18 15:30 Respiratory Rate 42 H 06/13/18 15:30 Blood Pressure 179/82 H 06/13/18 15:30 Pulse Oximetry 89 L 06/13/18 15:30 Last Documented Vital Signs Temperature 98.3 F 06/13/18 15:30 Pulse Rate 107 H 06/13/18 15:43 Respiratory Rate 26 H 06/13/18 15:43 Blood Pressure 167/99 H 06/13/18 15:43 Pulse Oximetry 95 06/13/18 15:43 Medical Decision Making MDM Narrative Medical Screen Exam Complete: Yes Emergency Medical Condition: Yes Differential Diagnosis Differential Diagnosis: COPD exacerbation versus ACS versus chest pain versus typical chest pain Medical Records Medical records reviewed: Yes I reviewed the patient's medical records. Lab Data Lab results reviewed: Yes I reviewed the patient's lab results. Lab results narrative: Troponin and CK-MB negative. BNP slightly elevated Result diagrams: 06/13/18 15:50 06/13/18 15:50 Lab Results 06/13/18 06/13/18 06/13/18 Range/Units 15:50 15:50 15:50 WBC 11.8 H (4.0-11.0) th/mm3 RBC 4.76 (4.00-5.30) mil/mm3 Hgb 15.8 H (11.6-15.3) gm/dL Hct 45.1 (35.0-46.0) % MCV 94.8 (80.0-100.0) fL MCH 33.1 (27.0-34.0) pg MCHC 35.0 (32.0-36.0) % RDW 15.6 (11.6-17.2) % Plt Count 185 (150-450) th/mm3 MPV 9.4 (7.0-11.0) fL Neut % (Auto) 82.0 H (16.0-70.0) % Lymph % (Auto) 8.7 L (9.0-44.0) % Fleming % (Auto) 8.0 (0.0-8.0) % Eos % (Auto) 0.6 (0.0-4.0) % Baso % (Auto) 0.7 (0.0-2.0) % Neut # (Auto) 9.6 H (1.8-7.7) th/mm3 Lymph # (Auto) 1.0 (1.0-4.8) th/mm3 Fleming # (Auto) 0.9 (0.0-0.9) th/mm3 Eos # (Auto) 0.1 (0.0-0.4) th/mm3 Baso # (Auto) 0.1 (0.0-0.2) th/mm3 WBC Differential . Differential Comment Auto diff final Sodium 137 (136-145) meq/L Potassium 3.9 (3.5-5.1) meq/L Chloride 103 (98-107) meq/L Carbon Dioxide 27.1 (21.0-32.0) meq/L Anion Gap 7 (5-15) meq/L BUN 11 (7-18) mg/dL Creatinine 1.04 H (0.50-1.00) mg/dL Estimated GFR 67 L (>89) mL/min Random Glucose 245 H (74-106) mg/dL Calcium 8.6 (8.5-10.1) mg/dL Total Creatine Kinase 136 (26-192) U/L CK-MB (CK-2) 1.5 (0.5-3.6) ng/mL Troponin I Less than 0.02 L (0.02-0.05) ng/mL B-Natriuretic Peptide (0-100) pg/mL 06/13/18 Range/Units 15:50 WBC (4.0-11.0) th/mm3 RBC (4.00-5.30) mil/mm3 Hgb (11.6-15.3) gm/dL Hct (35.0-46.0) % MCV (80.0-100.0) fL MCH (27.0-34.0) pg MCHC (32.0-36.0) % RDW (11.6-17.2) % Plt Count (150-450) th/mm3 MPV (7.0-11.0) fL Neut % (Auto) (16.0-70.0) % Lymph % (Auto) (9.0-44.0) % Fleming % (Auto) (0.0-8.0) % Eos % (Auto) (0.0-4.0) % Baso % (Auto) (0.0-2.0) % Neut # (Auto) (1.8-7.7) th/mm3 Lymph # (Auto) (1.0-4.8) th/mm3 Fleming # (Auto) (0.0-0.9) th/mm3 Eos # (Auto) (0.0-0.4) th/mm3 Baso # (Auto) (0.0-0.2) th/mm3 WBC Differential Differential Comment Sodium (136-145) meq/L Potassium (3.5-5.1) meq/L Chloride (98-107) meq/L Carbon Dioxide (21.0-32.0) meq/L Anion Gap (5-15) meq/L BUN (7-18) mg/dL Creatinine (0.50-1.00) mg/dL Estimated GFR (>89) mL/min Random Glucose (74-106) mg/dL Calcium (8.5-10.1) mg/dL Total Creatine Kinase (26-192) U/L CK-MB (CK-2) (0.5-3.6) ng/mL Troponin I (0.02-0.05) ng/mL B-Natriuretic Peptide 27 (0-100) pg/mL Imaging Data Attestation: I personally reviewed and interpreted this imaging study as follows : Radiologist's impression: Chest X-Ray 06/13/18 15:44 CONCLUSION: No acute cardiopulmonary disease. Head CT 06/13/18 16:37 CONCLUSION: 1. Negative CT Head non contrast. . ECG Data Interpretation: EKG shows no sign of acute ischemia. sinus tachycardia. No ST elevation. Read by me and attending. Discharge Plan Discharge Disposition Patient Disposition: 30 Still Patient Discharge Details Diagnosis: COPD exacerbation, Chest pain Physicians Team ED Provider: Marisol Contreras ED Midlevel Provider: Natalio Jones Primary Care Provider: UNKNOWN, Rxs /Orders / Referrals /Forms Prescriptions: No Action mwqehyyvin-gjggagn-cgyudafm [Fiorinal] 50-325-40 mg capsule 1 cap PO Q6H PRN (Reason: pain) Qty: 6 RF: 0 lisinopril 5 mg tablet 5 mg PO DAILY Qty: 30 RF: 0 Discharge Instructions Patient Printed Instructions: Chest Pain (ED) Discharge Interventions Interventions: Vital Signs Last Done: 06/13/18 15:43 Status ED Status: With Doctor
--- NOTE | 2018-06-13 18:04 | P.HPIM ---
History of Present Illness Primary Care Physician: UNKNOWN Chief Complaint: shortness of breath History of Present Illness: patient is a 57 y/o female with history of COPD, chronic smoker, presented to ER with shortness of breath. she says that she's on home oxygen and normally on two liters- however for the past few days she had to go up with her oxygen to five liters. she says that she ran out of her other medications and is not using inhalers at home. she reports productive cough of ' brownish' sputum along with some subjective fever at home. she says that she has some pain to the left lateral chest which is worse with the cough. she still smokes. Review of Systems All other systems reviewed negative except as stated in HPI [facility] - History History Provided By: Patient - Medical History Medical History: Medical History (Last Reviewed 06/13/18 @ 17:49 by NICOLA Walker) Asthma Breast mass HTN (hypertension) COPD (chronic obstructive pulmonary disease) - Surgical History Surgical History: Surgical History (Last Reviewed 06/13/18 @ 17:49 by NICOLA Walker) No history of previous surgery - Tobacco History Tobacco Use In Past 30 Days: Yes Smoking Status: Current every day smoker Tobacco Type: Cigarettes - Alcohol History How Often Do You Have a Drink Containing Alcohol: Never - Substance Use History Substance History: No History of Abuse - Travel History Recent Travel in the [place] Within the Last 8 Weeks: No Recent Travel Out of the Country Within the Last 8 Weeks: No - Immunization History Tetanus Immunization: Unsure Hx Influenza Vaccine This Season: Yes Medications and Allergies Active Medications: Active Medications Albuterol (Duoneb Neb ([facility])) 1 ampul NEB Q15M ANDRA Stop: 06/13/18 18:16 Albuterol (Albuterol Neb (Prn)) 1.25 mg NEB Q2HR NEB PRN PRN Reason: sob Albuterol (Duoneb Neb (Andra)) 1 ampul NEB Q4HR NEB ANDRA Enoxaparin Sodium (Lovenox Inj) 40 mg SQ DAILY [facility] Levofloxacin/Dextrose (Levaquin 500 Mg Premix Inj) 500 mg in 100 mls @ 100 mls/ hr IV.SIG Q24H [facility] Lisinopril (Prinivil) 5 mg PO DAILY [facility] Methylprednisolone Sodium Succinate (Solumedrol Inj) 60 mg IV.PUSH Q8HR ANDRA Allergies Allergy/AdvReac Type Severity Reaction Status Date / Time diatrizoate meglumine Allergy Intermediate Wheezing Verified 05/31/18 14:13 gadobenic acid Allergy Intermediate Wheezing Verified 05/31/18 14:13 gadodiamide Allergy Intermediate Wheezing Verified 05/31/18 14:13 gadoteridol Allergy Intermediate Wheezing Verified 05/31/18 14:13 iodixanol Allergy Intermediate Wheezing Verified 05/31/18 14:13 iohexol Allergy Intermediate Wheezing Verified 05/31/18 14:13 Exam Vital signs: Vital Signs 06/13/18 15:30 06/13/18 15:43 Temperature 98.3 F Pulse Rate 118 H 107 H Respiratory Rate 42 H 26 H Blood Pressure 179/82 H 167/99 H Pulse Oximetry 89 L 95 Intake & Output 06/12/18 06/13/18 06/13/18 18:59 06:59 18:59 Weight 85.729 kg - Constitutional no acute distress - Detailed Breast Exam left Palpation: Present: tenderness - Routine Respiratory Exam Present: prolonged expiratory phase, wheezes - Routine Cardiovascular Exam Present: RRR - Routine Abdominal Exam Present: soft - Routine Extremities Exam Comments: no pedal edema. - Routine Neurological Exam Present: alert, oriented X3 Results - Labs CBC & Chem 7: 06/13/18 15:50 06/13/18 15:50 Labs: Short CBC 06/13/18 Range/Units 15:50 WBC 11.8 H (4.0-11.0) th/mm3 Hgb 15.8 H (11.6-15.3) gm/dL Hct 45.1 (35.0-46.0) % Plt Count 185 (150-450) th/mm3 BMP 06/13/18 15:50 Sodium 137 Potassium 3.9 Chloride 103 Carbon Dioxide 27.1 BUN 11 Creatinine 1.04 H Calcium 8.6 Cardiac Enzymes 06/13/18 06/13/18 Range/Units 15:50 15:50 Total Creatine Kinase 136 (26-192) U/L CK-MB (CK-2) 1.5 (0.5-3.6) ng/mL Troponin I Less than 0.02 L (0.02-0.05) ng/mL - Imaging Impressions Chest X-Ray 06/13/18 15:44 CONCLUSION: No acute cardiopulmonary disease. Head CT 06/13/18 16:37 CONCLUSION: 1. Negative CT Head non contrast. . Caprini VTE Risk Assessment Caprini VTE Risk Assessment: Moderate/High Risk (score >= 2) Caprini Risk Assessment Model: Point Value = 1 Point Value = 2 Point Value = 3 Point Value = 5 Age 41-60 Minor surgery BMI > 25 kg/m2 Swollen legs Varicose veins or History of unexplained or recurrent spontaneous Oral contraceptives or hormone replacement Sepsis (< 1 month) Serious lung disease, including pneumonia (< 1 month) Abnormal pulmonary function Acute myocardial infarction Congestive heart failure (< 1 month) History of inflammatory bowel disease Medical patient at bed rest Age 61-74 Arthroscopic surgery Major open surgery (> 45 min) Laparoscopic surgery (> 45 min) Malignancy Confined to bed (> 72 hours) Immobilizing plaster cast Central venous access Age >= 75 History of VTE Family history of VTE Factor V Leiden Prothrombin [id number] Lupus anticoagulant Anticardiolipin antibodies Elevated serum homocysteine Heparin-induced thrombocytopenia Other congenital or acquired thrombophilia Stroke (< 1 month) Elective arthroplasty Hip, pelvis, or leg fracture Acute spinal cord injury (< 1 month) Prophylaxis Regimen: Total Risk Factor Score Risk Level Prophylaxis Regimen 0-1 Low Early ambulation 2 Moderate Order ONE of the following: *Sequential Compression Device (SCD) *Heparin 5000 units SQ BID 3-4 Higher Order ONE of the following medications: *Heparin 5000 units SQ TID *Enoxaparin/Lovenox 40 mg SQ daily (WT < 150 kg, CrCl > 30 mL/min) *Enoxaparin/Lovenox 30 mg SQ daily (WT < 150 kg, CrCl > 10-29 mL/min) *Enoxaparin/Lovenox 30 mg SQ BID (WT < 150 kg, CrCl > 30 mL/min) AND/OR *Sequential Compression Device (SCD) 5 or more Highest Order ONE of the following medications: *Heparin 5000 units SQ TID (Preferred with Epidurals) *Enoxaparin/Lovenox 40 mg SQ daily (WT < 150 kg, CrCl > 30 mL/min) *Enoxaparin/Lovenox 30 mg SQ daily (WT < 150 kg, CrCl > 10-29 mL/min) *Enoxaparin/Lovenox 30 mg SQ BID (WT < 150 kg, CrCl > 30 mL/min) AND *Sequential Compression Device (SCD) Assessment and Plan - Plan A/P - COPD exacerbation keep on oxygen to keep O2 sat . 90%- continue with neb treatment ( prn and scheduled) along with IV steroids and antibiotic. counselled on smoking cessation. -chest pain- atypical and likely due to COPD- received aspirin in ER- will trend the cardiac enzymes. -hypertension; resume lisinopril -breast mass- f/u as outpatient and she already has an appointment. -DVT prophylaxis with subq Lovenox. -case management consulted to assist with dc planning/ needs. Discussed Condition With: ER and the patient.
[2018-06-13] MEDS ORDERED: Dextrose 50% in Water 50 ML Vial IV.PUSH PRN (19:41)
[2018-06-13] MEDS: Insulin NovoLOG Aspart Correctional Sugar Inj SQ SCH (20:22)
[2018-06-13] MEDS: Levofloxacin 500 mg Premix Inj 500 MG/100 ML PIGGYBACK IV.SIG SCH (20:23)
[2018-06-13] MEDS ORDERED: Sod Chloride 0.9% Inj 1,000 ML IV.SIG ONE (21:22)
[2018-06-14] MEDS: MethylPREDNISolone Sod Succinate Inj 125 MG/2 ML Vial IV.PUSH SCH ×3 (02:26→16:07)
[2018-06-14] MEDS: Lisinopril 5 MG Tablet PO SCH (09:55)
[2018-06-14] MEDS: Insulin NovoLOG Aspart Correctional Sugar Inj SQ SCH ×4 (09:56→21:34)
[2018-06-14] MEDS: Enoxaparin Inj 40 MG/0.4 ML Syringe SQ SCH (09:57)
[2018-06-14] MEDS: Acetaminophen 325 MG Tablet PO PRN ×2 (10:11→16:08)
--- NOTE | 2018-06-14 10:19 | P.PN ---
Subjective Interval history: Follow-up visit COPD exacerbation, current day smoker, noncompliant with medications unable to afford. Patient seen and examined today. Reports shortness of breath has improved significantly after being given treatments. She is currently concerned that she is unable to afford medications and not having a PCP to follow. States she needed assistance with medications. Currently, symptoms improving. Denies pain and discomfort. Denies worsening SOB/ dyspnea. Denies chest pain, palpitations, headaches, dizziness. Denies fevers, chills, n/v/d. Denies dysuria. Physical Exam Vital signs: Vital Signs 06/13/18 15:30 06/13/18 15:43 06/13/18 15:44 Temperature 98.3 F Pulse Rate 118 H 107 H 110 H Respiratory Rate 42 H 26 H Blood Pressure 179/82 H 167/99 H Pulse Oximetry 89 L 95 94 L 06/13/18 18:02 06/13/18 18:07 06/13/18 18:08 Temperature Pulse Rate 104 H 104 H Respiratory Rate 17 19 Blood Pressure 144/86 H Pulse Oximetry 93 L 94 L 06/13/18 20:00 06/13/18 23:32 06/13/18 23:40 Temperature 98.1 F Pulse Rate 90 90 95 H Respiratory Rate 18 19 Blood Pressure 135/71 Pulse Oximetry 94 L 94 L 06/14/18 03:27 06/14/18 03:45 06/14/18 07:00 Temperature 98.0 F Pulse Rate 94 H 78 82 Respiratory Rate 20 17 20 Blood Pressure 159/84 H Pulse Oximetry 92 L 06/14/18 07:29 06/14/18 07:51 Temperature 96.4 F L Pulse Rate 80 Respiratory Rate 16 Blood Pressure 147/75 H Pulse Oximetry 94 L 90 L Intake & Output 06/13/18 06/14/18 06/14/18 18:59 06:59 18:59 Intake Total 1100 / 1100 Output Total 200 / 200 Balance 900 / 900 Weight 85.729 kg 86.8 kg Intake: IV 1100 / 1100 Levaquin 500 mg Premix Inj 500 100 / 100 mg In 100 ml @ 100 mls/hr IV. SIG Q24H BLANCA Rx#:[id number] NS Inj 1,000 ML @ Wide Open IV. 1000 / 1000 SIG BOLUS ONE Rx#:[id number] Output: Urine 200 / 200 Other: Weight On Admission 85.729 kg Narrative: GENERAL: This is an obese patient, well-developed patient, in no apparent distress. SKIN: Warm and dry. HEENT: Normocephalic. Pupils equal round and reactive. Nose without bleeding. Airway patent. NECK: Trachea midline. Supple. CARDIOVASCULAR: Regular rate and rhythm without murmurs, gallops, or rubs. RESPIRATORY: Expiratory wheeze. Diminished bases. GASTROINTESTINAL: Abdomen soft, non-tender, obese. Bowel Sounds normoactive x4. MUSCULOSKELETAL: Extremities without clubbing, cyanosis, or edema. NEUROLOGICAL: Awake and alert. Oriented to time, place, person. No focal neuro deficit. Moves all extremities. Normal speech. Results - Labs CBC & Chem 7: 06/13/18 15:50 06/13/18 15:50 Laboratory Results - last 24 hr 06/13/18 06/13/18 06/13/18 15:50 15:50 15:50 WBC 11.8 H RBC 4.76 Hgb 15.8 H Hct 45.1 MCV 94.8 MCH 33.1 MCHC 35.0 RDW 15.6 Plt Count 185 MPV 9.4 Neut % (Auto) 82.0 H Lymph % (Auto) 8.7 L [place] % (Auto) 8.0 Eos % (Auto) 0.6 Baso % (Auto) 0.7 Neut # (Auto) 9.6 H Lymph # (Auto) 1.0 [place] # (Auto) 0.9 Eos # (Auto) 0.1 Baso # (Auto) 0.1 WBC Differential . Differential Comment Auto diff final Sodium 137 Potassium 3.9 Chloride 103 Carbon Dioxide 27.1 Anion Gap 7 BUN 11 Creatinine 1.04 H Estimated GFR 67 L POC Glucose Random Glucose 245 H Calcium 8.6 Total Creatine Kinase 136 CK-MB (CK-2) 1.5 Troponin I Less than 0.02 L B-Natriuretic Peptide 06/13/18 06/13/18 06/13/18 15:50 19:29 20:54 WBC RBC Hgb Hct MCV MCH MCHC RDW Plt Count MPV Neut % (Auto) Lymph % (Auto) [place] % (Auto) Eos % (Auto) Baso % (Auto) Neut # (Auto) Lymph # (Auto) [place] # (Auto) Eos # (Auto) Baso # (Auto) WBC Differential Differential Comment Sodium Potassium Chloride Carbon Dioxide Anion Gap BUN Creatinine Estimated GFR POC Glucose 306 H 406 H Random Glucose Calcium Total Creatine Kinase CK-MB (CK-2) Troponin I B-Natriuretic Peptide 27 06/13/18 06/14/18 23:55 09:29 WBC RBC Hgb Hct MCV MCH MCHC RDW Plt Count MPV Neut % (Auto) Lymph % (Auto) [place] % (Auto) Eos % (Auto) Baso % (Auto) Neut # (Auto) Lymph # (Auto) [place] # (Auto) Eos # (Auto) Baso # (Auto) WBC Differential Differential Comment Sodium Potassium Chloride Carbon Dioxide Anion Gap BUN Creatinine Estimated GFR POC Glucose 232 H Random Glucose Calcium Total Creatine Kinase CK-MB (CK-2) Troponin I Less than 0.02 L B-Natriuretic Peptide - Imaging Impressions Chest X-Ray 06/13/18 15:44 CONCLUSION: No acute cardiopulmonary disease. Head CT 06/13/18 16:37 CONCLUSION: 1. Negative CT Head non contrast. . Assessment and Plan - Plan patient is a 57 y/o female with history of COPD, chronic smoker, presented to ER with shortness of breath. she says that she's on home oxygen and normally on two liters- however for the past few days she had to go up with her oxygen to five liters. COPD exacerbation O2 dependent Generalized weakness -Keep O2 greater than 90% -Duo nebs scheduled and as needed -Symbicort, IV Solu-Medrol, will tapered to p.o. prednisone -IV Levaquin, will switch to p.o. -Monitor respiratory status Current day smoker -Counseled. Nicotine patch. Chest pain Breast mass -Likely COPD related. Received aspirin in the ED. Cardiac enzymes negative. -This could also be related to breast abnormalities -History of breast mass, due for outpatient appointment -Left lymph adenopathy axillary HTN -Continue Lisinopril DVT prop open Code Status: Full code Discussed Condition With: Patient, nurse Discharge Planning: Plan to DC home when clinically improved.
[2018-06-14] MEDS: Budesonide-Formoterol 160/4.5 MCG 6 GM Inhaler INH SCH ×2 (14:02→22:57)
[2018-06-14 18:09] LABS: Hemoglobin A1c 7.3 % (4.3-6.0)
[2018-06-14] MEDS: Levofloxacin 500 mg Premix Inj 500 MG/100 ML PIGGYBACK IV.SIG SCH (21:21)
--- NOTE | 2018-06-14 21:40 | ECG ---
Date Performed: 06/13/2018 Time Performed: 15:38:49 PTAGE: 57 years EKG: SINUS TACHYCARDIA POSSIBLE LEFT ATRIAL ENLARGEMENT NONSPECIFIC ST & T-WAVE ABNORMALITY ABNO RMAL RHYTHM ECG NO PREVIOUS TRACING DOCTOR: Hugh Guzman Interpretating Date/Time 06/14/2018 21:39:31
[2018-06-15] MEDS: MethylPREDNISolone Sod Succinate Inj 125 MG/2 ML Vial IV.PUSH SCH ×2 (00:59→09:55)
[2018-06-15 03:58] VITALS: BP 170/77; TEMP 97.9
[2018-06-15] MEDS: Acetaminophen 325 MG Tablet PO PRN (06:09)
[2018-06-15 07:49] VITALS: PULSE 81; RESP 19; O2SAT 95
--- NOTE | 2018-06-15 09:40 | P.DS ---
Date of admission: 06/13/18 18:33 Primary care physician: UNKNOWN Attending physician on discharge: Danis Mcneil Anticipated date of discharge: 06/15/18 Brief History from admission: patient is a 57 y/o female with history of COPD, chronic smoker, presented to ER with shortness of breath. she says that she's on home oxygen and normally on two liters- however for the past few days she had to go up with her oxygen to five liters. she says that she ran out of her other medications and is not using inhalers at home. she reports productive cough of ' brownish' sputum along with some subjective fever at home. she says that she has some pain to the left lateral chest which is worse with the cough. she still smokes. Patient update on day of discharge: Follow-up visit COPD exacerbation, current day smoker, noncompliant with medications unable to afford. Patient seen and examined today. Patient reports improving shortness of breath. States that she does not have nebulizer at home. States that her O2 is since 2016. Discussed with patient that all her medications will be provided for her with some assistance from the hospital. Otherwise unable to provide her with DMV. Case management referred the patient to outpatient resources. Patient clinically improved. Denies pain and discomfort. Denies SOB/ dyspnea. Denies chest pain, palpitations, headaches, dizziness. Denies fevers, chills, n/v/d. Denies hematuria, dysuria. DS: Diagnosis - Discharge Diagnosis (1) COPD exacerbation Status: Acute (2) Chest pain Status: Acute DS: Medications - Discharge Medications Prescriptions: albuterol sulfate 2 puff INHALATION Q4H PRN #1 inh PRN Reason: Shortness of Breath, Wheezing budesonide-formoterol [Symbicort] 2 puff INH BID 30 Days #1 inh levofloxacin [Levaquin] 500 mg PO DAILY 5 Days #5 tab lisinopril 5 mg PO DAILY #30 tab prednisone 20 mg PO BID 7 Days #14 tab DS: Summary Hospital Course: patient is a 57 y/o female with history of COPD, chronic smoker, presented to ER with shortness of breath. she says that she's on home oxygen and normally on two liters- however for the past few days she had to go up with her oxygen to five liters. Patient states that she is unable to afford her medication, inhalers at home that is why she does not have any maintenance inhalers to control her COPD. Patient states that she also does not have any nebulizer machine at home. Diagnosed with COPD exacerbation, duo nebs scheduled were given and as needed. Patient was started on Symbicort, was given IV Solu- Medrol. She was tapered off to p.o. prednisone. She was also given IV Levaquin which was switched to p.o. Levaquin and she will continue this and outpatient. She is a current day smoker nicotine patch was offered. Patient was also counseled. Patient came in with chest pain, apparently has breast mass were in she is due for outpatient appointment with x-ray and follow-up with her mammogram. Left lymphadenopathy in her axilla noted. She continues to be treated with lisinopril. Discussed sensitively with patient compliance with medication. Financial assistance paperwork's were provided for her. Patient has met maximal benefits of hospitalization. Clinically stable for discharge. - Time Spent with Patient Total time spent providing and/or coordinating discharge services: Less than 30 minutes - Quality: VTE Deep Vein Thrombosis/Pulmonary Embolism Present on Admission: No Exam Vital signs: Vital Signs 06/14/18 11:16 06/14/18 11:38 06/14/18 15:01 Temperature 97.8 F Pulse Rate 70 78 89 Respiratory Rate 20 16 18 Blood Pressure 137/72 Pulse Oximetry 90 L 06/14/18 15:48 06/14/18 19:29 06/14/18 20:00 Temperature 98.7 F 98.3 F Pulse Rate 81 89 90 Respiratory Rate 18 18 21 Blood Pressure 144/83 H 142/73 H Pulse Oximetry 90 L 91 L 92 L 06/14/18 23:25 06/14/18 23:39 06/15/18 03:54 Temperature 98.5 F 97.9 F Pulse Rate 82 92 H 59 L Respiratory Rate 16 20 Blood Pressure 135/75 170/77 H Pulse Oximetry 94 L 96 06/15/18 04:09 06/15/18 07:48 Temperature Pulse Rate 86 81 Respiratory Rate 16 19 Blood Pressure Pulse Oximetry 95 Intake & Output 06/14/18 06/15/18 06/15/18 18:59 06:59 18:59 Intake Total 100 / 100 Balance 100 / 100 Intake: IV 100 / 100 Levaquin 500 mg Premix Inj 500 100 / 100 mg In 100 ml @ 100 mls/hr IV. SIG Q24H [facility]ANCA Rx#:[id number] Other: # Voids 3 Narrative: GENERAL: This is an obese patient, well-developed patient, in no apparent distress. SKIN: Warm and dry. HEENT: Normocephalic. Pupils equal round and reactive. Nose without bleeding. Airway patent. NECK: Trachea midline. Supple. CARDIOVASCULAR: Regular rate and rhythm without murmurs, gallops, or rubs. RESPIRATORY: minimal Expiratory wheeze. Diminished bases. Improved aeration. GASTROINTESTINAL: Abdomen soft, non-tender, obese. Bowel Sounds normoactive x4. MUSCULOSKELETAL: Extremities without clubbing, cyanosis, or edema. NEUROLOGICAL: Awake and alert. Oriented to time, place, person. No focal neuro deficit. Moves all extremities. Normal speech. Results Procedures completed during hospitalization: None Labs on day of discharge: Labs from last 24 hours 06/15/18 06/14/18 06/14/18 09:21 21:22 18:15 POC Glucose 184 H 310 H 212 H Hemoglobin A1c Troponin I 06/14/18 06/14/18 06/13/18 13:43 13:16 15:50 POC Glucose 212 H Hemoglobin A1c 7.3 H Troponin I Less than 0.02 L - Impressions ITS Impressions Chest X-Ray 06/13/18 15:44 CONCLUSION: No acute cardiopulmonary disease. Head CT 06/13/18 16:37 CONCLUSION: 1. Negative CT Head non contrast. . Discharge Plan - Discharge Disposition Patient Disposition: 01 Discharge Home - Discharge Condition Condition: Stable - Discharge Order Discharge Orders: Discharge Order (Routine); Ordered 06/15/18 Ordered By: Kavon Mares - Physicians Team Primary Care Provider: UNKNOWN, Attending Provider: Danis Mcneil
[2018-06-15] MEDS: Insulin NovoLOG Aspart Correctional Sugar Inj SQ SCH ×2 (09:52→13:07)
[2018-06-15] MEDS: Enoxaparin Inj 40 MG/0.4 ML Syringe SQ SCH (09:54)
[2018-06-15] MEDS: Lisinopril 5 MG Tablet PO SCH (09:55)
[2018-06-15] MEDS ORDERED: levoFLOXacin 500 MG Tablet PO SCH (10:00)
[2018-06-15] MEDS ORDERED: MethylPREDNISolone Sod Succinate Inj 40 MG/ML Vial IV.PUSH SCH (10:00)
[2018-06-15] MEDS: Budesonide-Formoterol 160/4.5 MCG 6 GM Inhaler INH SCH (10:03)
== END 2018-06-15 12:38 | disposition home or self-care (01) ==
LOC: NEPC 15:12 → NEDA 15:12 → NEPHCDU 19:13
PROVIDERS: ADMIT Hospitalist; ATTEND Hospitalist